=== PATIENT | female | born 1990 | race African-American/Black ===

== ENCOUNTER 2018-04-29 22:02 | Emergency (ER) | payer MEDICARE, MEDICAID ==
[2018-04-30] MEDS ORDERED: PREDNISONE 20 MG TABLET PO ONE (01:25)
[2018-04-30] MEDS ORDERED: IBUPROFEN 600 MG TABLET PO ONE (01:26)
--- NOTE | 2018-04-30 01:28 | ER Document Report ---
HPI - HPI Patient complains to provider of: sore throat Time Seen by Provider: 04/29/18 23:21 Pain Level: 3 Context: Very pleasant 28-year-old female presents with concern for strep throat/tonsillitis. She states is been going on for 3 days and has associated dysphagia. Patient denies fevers, chills, complains of a little bit of nausea that is subsided, denies vomiting or diarrhea. Patient says she has a little cough but is not persistent. She denies headache or earache. She denies any other symptoms. - EENT EENT: REPORTS: Sore Throat. DENIES: Ear Pain, Eye problems - REPRODUCTIVE Reproductive: DENIES: : Past Medical History - Social History Smoking Status: Unknown if Ever Smoked Family History: Reviewed & Not Pertinent Patient has suicidal ideation: No Patient has homicidal ideation: No - Past Medical History Cardiac Medical History: Denies: Hx Coronary Artery Disease, Hx Heart Attack, Hx Hypertension Pulmonary Medical History: Denies: Hx Asthma, Hx Bronchitis, Hx COPD, Hx Pneumonia Neurological Medical History: Denies: Hx Cerebrovascular Accident, Hx Seizures Renal/ Medical History: Denies: Hx Peritoneal Dialysis Musculoskeletal Medical History: Denies Hx Arthritis Psychiatric Medical History: Reports: Hx Bipolar Disorder, Hx Depression, Hx Schizophrenia Past Surgical History: Denies: Hx Pacemaker - Immunizations Hx Diphtheria, Pertussis, Tetanus Vaccination: Yes Vertical Provider Document - CONSTITUTIONAL Notes: PHYSICAL EXAMINATION: Reviewed vital signs and charting by RN GENERAL: Alert, interacts well. No acute distress. HEAD: Normocephalic, atraumatic. EYES: Pupils equal, round, and reactive to light. Extraocular movements intact. ENT: Oral mucosa moist, tongue midline. 3+ tonsillar hypertrophy with no tonsillar exudate, no erythema NECK: Full range of motion. Supple. Trachea midline. Cervical lymphadenopathy, no tenderness LUNGS: Clear to auscultation bilaterally, no wheezes, rales, or rhonchi. No respiratory distress. HEART: Regular rate and rhythm. No murmur ABDOMEN: soft, non-tender. Non-distended. Bowel sounds present in all 4 quadrants. no McBurney's point tenderness, no Miranda sign. EXTREMITIES: Moves all 4 extremities spontaneously. No edema, No cyanosis. PSYCH: Normal affect, normal mood. SKIN: Warm, dry, normal turgor. No rashes or lesions noted. - INFECTION CONTROL TRAVEL OUTSIDE OF THE [place] IN LAST 30 DAYS: No Course - Re-evaluation Re-evalutation: 04/30/18 01:24 Overall well-appearing 28-year-old female with a negative rapid strep test. Will send for culture. When checking vital signs patient was tachycardic. She does state that she had been having a lot of palpitations recently like when she "is on a roller coaster. "I encouraged her to follow-up with Dr. Snyder this morning and may be consider a thyroid panel. I also offered her IV hydration as I am concerned she may be a little dehydrated due to her sore throat and reduced p.o. intake. She declined IV hydration. I encouraged her to increase her p.o. intake regardless if it is uncomfortable or not and reassured her that the dexamethasone will improve her symptoms in the next 12-24 hours. Patient agreed and is being discharged. 04/30/18 01:42 - Vital Signs Vital signs: Temp Pulse Resp BP Pulse Ox 98.0 F 116 H 16 142/90 H 98 04/29/18 23:10 04/29/18 23:10 04/29/18 23:10 04/29/18 23:10 04/29/18 23:10 Discharge - Discharge Clinical Impression: Pharyngitis Qualifiers: Pharyngitis/tonsillitis etiology: unspecified etiology Qualified Code(s): J02.9 - Acute pharyngitis, unspecified Condition: Good Disposition: HOME, SELF-CARE Instructions: Sore Throat ([facility]) Additional Instructions: You were seen in the emergency department this evening for sore throat. Your rapid strep was negative but it will be sent for culture. If it does come back positive you will be called by the culture nurse and antibiotics will be prescribed. Your heart rate was elevated this evening so it is important that you call Dr. Snyder in the morning and set up an appointment for a physical. You have been given a short dose of steroids for 5 days that will greatly help your symptoms. If your throat becomes more sore or swollen, it starts to close off and you cannot breathe, you have a racing heartbeat, you pass out, or have any other concerning symptoms please immediately return to the emergency department. Referrals: MISSAEL SNYDER, [Primary Care Provider] - Follow up as needed
[2018-04-30] MEDS ORDERED: DEXAMETHASONE SOD PHOS INJ 10 MG/1 ML VIAL IM ONE (01:36)
[2018-04-30 01:49] VITALS: BP 126/80
== END 2018-04-30 01:53 | disposition home or self-care (01) ==
LOC: ER 22:02
DX: J02.9 Acute pharyngitis, unspecified (principal); J35.1 Hypertrophy of tonsils; R13.10 Dysphagia, unspecified; R05 Cough; R00.2 Palpitations; R59.0 Localized enlarged lymph nodes; R00.0 Tachycardia, unspecified
CPT/HCPCS: 99283; 96372; 87070; 87880; A9270; J1100

== ENCOUNTER → 2018-10-10 | Outpatient (CLI) | payer MEDICARE, MEDICAID ==
--- NOTE | 2018-10-11 10:49 | RADIOLOGY REPORT (SQ) ---
EXAM DESCRIPTION: MRI HEAD COMBO COMPLETED DATE/TIME: 10/10/2018 4:17 pm REASON FOR STUDY: S09.90XD UNSPECIFIED INJURY OF HEAD, SUBSEQUENT ENCOUNTER S09.90XD UNSPECIFIED IN JURY OF HEAD, SUBSEQUENT ENCOUNTER COMPARISON: None. TECHNIQUE: Multiplanar imaging includes noncontrasted T1, T2, FLAIR, diffusion with ADC map and post gadolinium contrast T1 sequences. Additional diffusion tensor imaging was obtained. Additional hemosiderin sensitive sequences were al so obtained. Images stored on PACS. CONTRAST TYPE AND DOSE: 20 mL Dotarem. RENAL FUNCTION: Not indicated. ACR Type II contrast agent associated with few, if any, unconfounded cases of NSF LIMITATIONS: None. FINDINGS: ANATOMY: No anomalies. Normal vascular flow voids. Pituitary fossa normal. CSF SPACES: Normal in size and contour. No hemorrhage. CEREBRUM: Sulci and gyri normal in size and contour. Normal white matter signal on FLAIR imaging. No evidence of hemorrhage, mass, or extraaxial fluid collection. No abnormal enhancement post contrast. POSTERIOR FOSSA: No signal alteration. No hemorrhage. No edema, masses, or mass effect. Internal neha tory canals, cerebellopontine angles, mastoids normal. No enhancing lesions. No abnormal enhancement post contrast. DIFFUSION IMAGING: Negative for acute or subacute infarction. ORBITS: No masses. Globes normal. PARANASAL SINUSES: No fluid levels. Mucosa normal. OTHER: Susceptibility Imaging-No T2* evidence of abnormal parenchymal iron deposition. Diffusion ten sor weighted images are normal. IMPRESSION: NORMAL MRI OF THE BRAIN WITHOUT AND WITH INTRAVENOUS GADOLINIUM CONTRAST. EVIDENCE OF ACUTE STROKE: NO. TECHNICAL DOCUMENTATION: JOB ID: [id number] [employer]- All Rights Reserved Reading location - IP/workstation name: [email or web address]
== END ==
LOC: RAD 15:18
PROVIDERS: ATTEND Family Medicine
DX: S09.90XD Unspecified injury of head, subsequent encounter (principal); R00.2 Palpitations; X58.XXXD Exposure to other specified factors, subsequent encounter
CPT/HCPCS: 82565; 70553; A9576

== ENCOUNTER → 2018-10-23 | Outpatient (CLI) | payer MEDICARE, MEDICAID ==
--- NOTE | 2018-10-23 21:35 | XCELERA REPORT ---
[address] [address] Transthoracic Echocardiogram Report Name: TRACY COX Age: 28 yrs Gender: Female : 1990 Patient Status: Outpatient Patient Location: [facility] Study Date: 10/23/2018 01:14 PM Height: 67 in Weight: 285 lb BSA: 2.4 m2 Procedure: A two-dimensional transthoracic echocardiogram with color flow and Doppler was performed. Study Quality: Poor. Reason For Study: PALPITATIONS History: PALPITATIONS. Ordering Physician: MISSAEL DOMINGUEZ Performed By: Nadine Mendoza Interpretation Summary The left ventricle is normal in size. There is normal left ventricular wall thickness. LV EF is 65% The left ventricular ejection fraction is within normal limits. Doppler measurements suggest normal left ventricular diastolic function The left ventricular wall motion is normal. Cannot assess for ASD,VSD ,or PFO. The right ventricle is grossly normal size. The right ventricle is not well visualized secondary to technical limitations The right atrium is normal. The left atrial size is normal. There is no evidence of mitral valve prolapse. There is no vegetation seen on the mitral valve. There is no mitral valve stenosis. There is no mitral regurgitation noted. There is no aortic valvular vegetation. There is no aortic valve stenosis There is no LVOT obstruction. No aortic regurgitation is present. There is no tricuspid stenosis. There is a trace amount of tricuspid regurgitation Right ventricular systolic pressure is at the upper limits of normal RVSP is 30 mm of Hg , with RA mean of 10. There is no pulmonic valvular stenosis. There is no pulmonic valvular regurgitation. The aortic root is not well visualized but is probably normal size. The inferior vena cava was not visualized There is no pericardial effusion. MMode/2D Measurements & Calculations RVDd: 2.9 cm LVIDd: 4.3 cm FS: 35.4 % Ao root diam: 2.8 cm IVSd: 0.78 cm LVIDs: 2.7 cm EDV(Teich): LVPWd: 0.99 cm 80.8 ml Ao root area: ESV(Teich): 6.0 cm2 28.2 ml EF(Teich): 65.2 % EDV(MOD-sp4): SV(MOD-sp4): 107.9 ml 72.7 ml ESV(MOD-sp4): 35.2 ml EF(MOD-sp4): 67.3 % Doppler Measurements & Calculations MV E max sharon: MV dec slope: Ao V2 max: LV V1 max P.8 cm/sec 122.2 cm/sec 4.2 mmHg MV A max sharon: 544.0 cm/sec2 Ao max PG: LV V1 max: 67.3 cm/sec MV dec time: 0.15 sec6.0 mmHg 102.6 cm/sec MV E/A: 1.2 PA V2 max: TR max sharon: 107.9 cm/sec 222.7 cm/sec PA max P.7 mmHg TR max P.8 mmHg Left Ventricle The left ventricle is normal in size. There is normal left ventricular wall thickness. LV EF is 65%. The left ventricular ejection fraction is within normal limits. Doppler measurements suggest normal left ventricular diastolic function. The left ventricular wall motion is normal. Cannot assess for ASD,VSD ,or PFO. There is no thrombus. Right Ventricle The right ventricle is grossly normal size. The right ventricle is not well visualized secondary to technical limitations. Atria The right atrium is normal. The left atrial size is normal. Mitral Valve There is no evidence of mitral valve prolapse. There is no vegetation seen on the mitral valve. There is no mitral valve stenosis. There is no mitral regurgitation noted. Aortic Valve There is no aortic valvular vegetation. There is no aortic valve stenosis. There is no LVOT obstruction. No aortic regurgitation is present. Tricuspid Valve There is no tricuspid stenosis. There is a trace amount of tricuspid regurgitation. Right ventricular systolic pressure is at the upper limits of normal. RVSP is 30 mm of Hg , with RA mean of 10. Pulmonic Valve There is no pulmonic valvular stenosis. There is no pulmonic valvular regurgitation. Great Vessels The aortic root is not well visualized but is probably normal size. The inferior vena cava was not visualized. Effusions There is no pericardial effusion. : MISSAEL DOMINGUEZ > Pushpa Casey
== END ==
LOC: SP 12:43
PROVIDERS: ATTEND Family Medicine
DX: S09.90XD Unspecified injury of head, subsequent encounter (principal); X58.XXXD Exposure to other specified factors, subsequent encounter; R00.2 Palpitations; R01.1 Cardiac murmur, unspecified
CPT/HCPCS: 93306

== ENCOUNTER 2018-11-09 03:15 | Emergency (ER) | payer MEDICARE, MEDICAID ==
[2018-11-09 03:28] VITALS: BP 139/96
[2018-11-09] MEDS ORDERED: PENICILLIN G BENZATHINE 1.2 MILLION UNIT/2 ML DISP.SYRIN IM ONE (03:41)
[2018-11-09] MEDS ORDERED: DEXAMETHASONE SOD PHOS INJ 10 MG/1 ML VIAL IM ONE (03:41)
--- NOTE | 2018-11-09 03:47 | ER Document Report ---
ED General - General Chief Complaint: Sore Throat Stated Complaint: TROUBLE SWALLOWING Time Seen by Provider: 11/09/18 03:34 Primary Care Provider: MISSAEL DOMINGUEZ DO [Primary Care Provider] - Follow up as needed Notes: Patient is a pleasant 28-year-old female presents with complaint of a sore throat. Says symptoms started yesterday. No fevers. No vomiting. No difficulty breathing. No cough. No congestion. Does hurt to swallow. No other complaints at this time. No recent sick contacts. TRAVEL OUTSIDE OF THE [place] IN LAST 30 DAYS: No - Related Data Allergies/Adverse Reactions: No Known Allergies Allergy (Verified 08/03/11 08:31) Past Medical History - Social History Smoking Status: Never Smoker Frequency of alcohol use: None Drug Abuse: None Family History: Reviewed & Not Pertinent - Past Medical History Cardiac Medical History: Denies: Hx Coronary Artery Disease, Hx Heart Attack, Hx Hypertension Pulmonary Medical History: Denies: Hx Asthma, Hx Bronchitis, Hx COPD, Hx Pneumonia Neurological Medical History: Denies: Hx Cerebrovascular Accident, Hx Seizures Renal/ Medical History: Denies: Hx Peritoneal Dialysis Musculoskeletal Medical History: Denies Hx Arthritis Psychiatric Medical History: Reports: Hx Bipolar Disorder, Hx Depression, Hx Schizophrenia Past Surgical History: Denies: Hx Pacemaker - Immunizations Hx Diphtheria, Pertussis, Tetanus Vaccination: Yes Review of Systems - Review of Systems Notes: My Normal Review Basic REVIEW OF SYSTEMS: CONSTITUTIONAL : Denies fever, chills, or sweats. Denies recent illness. EENT: Sore throat RESPIRATORY: Denies cough, cold, or chest congestion. Denies shortness of breath, difficulty breathing, or wheezing. GASTROINTESTINAL: Denies abdominal pain. Denies nausea, vomiting, or diarrhea. Denies constipation. Last BM: MUSCULOSKELETAL: Denies neck or back pain or joint pain or swelling. SKIN: Denies rash or skin lesions. NEUROLOGICAL: Denies altered mental status or loss of consciousness. Denies headache. Denies weakness or paralysis or loss of use of either side. Denies problems with gait or speech. Denies sensory or motor loss. ALL OTHER SYSTEMS REVIEWED AND NEGATIVE. Physical Exam - Vital signs Vitals: Temp Pulse Resp BP Pulse Ox 97.3 F 84 16 139/96 H 97 11/09/18 03:20 11/09/18 03:20 11/09/18 03:20 11/09/18 03:20 11/09/18 03:20 - Notes Notes: General Appearance: Well nourished, alert, cooperative, no acute distress, no obvious discomfort. Vitals: reviewed, See vital signs table. Head: no swelling or tenderness to the head Eyes: PERRL, EOMI, Conjuctiva clear Mouth: No decreasd moisture Throat: Patient has bilateral tonsillar hypertrophy with exudates. No inflammation or swelling in the peritonsillar space. Uvula is midline. Patient has no difficulty breathing or swelling on exam. She is handling secretions without difficulty. No stridor. Neck: Supple, no neck tenderness, small amount of anterior cervical lymphadenopathy bilaterally. Lungs: No wheezing, No rales, No rhonci, No accessory muscle use, good air exchange bilaterally. Heart: Normal rate, Regular rythm, No murmur, no rub Skin: warm, dry, appropriate color, no rash Neuro: speech clear, oriented x 3, normal affect, responds appropriately to questions. Course - Re-evaluation Re-evalutation: 11/09/18 03:47 Patient is well-appearing on exam. I feel she safe to be discharged home. She has what appears to be strep pharyngitis. She does meet treatment per center criteria. I talked her length about the possibility of mono as well. I informed her mono testing would not yet be positive. I informed her that if she is still having pain in her throat that she should follow-up with your doctor return to ER in 4 to 5 days for reevaluation. I encouraged her return to ER immediately if she has difficulty breathing, difficulty swallowing, or she feels like she is worsening in any way. Patient agrees with plan and will be discharged home. Dictation of this chart was performed using voice recognition software; therefore, there may be some unintended grammatical errors. - Vital Signs Vital signs: Temp Pulse Resp BP Pulse Ox 97.3 F 84 16 139/96 H 97 11/09/18 03:20 11/09/18 03:20 11/09/18 03:20 11/09/18 03:20 11/09/18 03:20 Discharge - Discharge Clinical Impression: Pharyngitis Qualifiers: Pharyngitis/tonsillitis etiology: unspecified etiology Qualified Code(s): J02.9 - Acute pharyngitis, unspecified Condition: Good Disposition: HOME, SELF-CARE Additional Instructions: Sometimes people with strep throat will go on to develop something called a peritonsillar abscess. This will be swelling above your tonsil causing the uvula (hangy ball in the back of your throat) to shift to one side of your throat. If you develop these symptoms you must return to the ER immediately as this requires a different kind of treatment. Also please return to the ER immediately for difficulty breathing, difficulty swallowing, or if you have any further concerns that you are worsening. If your symptoms not improving after 4 to 5 days you should return to ER for evaluation or follow up with your doctor for reevaluation. Referrals: MISSAEL DOMINGUEZ DO [Primary Care Provider] - 11/12/18
== END 2018-11-09 03:58 | disposition home or self-care (01) ==
LOC: ER 03:15
DX: J02.9 Acute pharyngitis, unspecified (principal)
CPT/HCPCS: 99282; 96372; J0561; J1100

== ENCOUNTER 2019-05-05 21:32 | Emergency (ER) | payer MEDICARE, MEDICAID ==
--- NOTE | 2019-05-06 01:26 | ER Document Report ---
HPI - HPI Patient complains to provider of: sore throat, cough Time Seen by Provider: 05/06/19 00:41 Onset: Other Quality of pain: Achy Pain Level: 4 Context: 29-year-old female presents emergency department with complaints of cough and sore throat for the past 10 days. Denies fever vomiting diarrhea. Denies exposure to strep. Reports she has taken Robitussin without relief of symptoms. Patient does not smoke but lives in a house full of people that do smoke. Associated Symptoms: Nonproductive cough, Sore throat Exacerbated by: Denies Relieved by: Denies Similar symptoms previously: No Recently seen / treated by doctor: No - CONSTITUTIONAL Constitutional: DENIES: Fever, Chills - EENT EENT: REPORTS: Sore Throat. DENIES: Ear Pain, Eye problems - NEURO Neurology: DENIES: Headache, Weakness, Vision blurred, Dizzinesss / Vertigo - CARDIOVASCULAR Cardiovascular: DENIES: Chest pain - RESPIRATORY Respiratory: REPORTS: Coughing - GASTROINTESTINAL Gastrointestinal: DENIES: Abdominal Pain, Black / Bloody Stools - URINARY Urinary: DENIES: Dysuria, Urgency, Frequency - REPRODUCTIVE Reproductive: DENIES: : - MUSCULOSKELETAL Musculoskeletal: DENIES: Extremity pain Past Medical History - General Information source: Patient Last Menstrual Period: irregular - Social History Smoking Status: Never Smoker Cigarette use (# per day): No Frequency of alcohol use: None Drug Abuse: None Occupation: [employer] Lives with: Family Family History: Reviewed & Not Pertinent Patient has suicidal ideation: No Patient has homicidal ideation: No - Past Medical History Cardiac Medical History: Denies: Hx Coronary Artery Disease, Hx Heart Attack, Hx Hypertension Pulmonary Medical History: Denies: Hx Asthma, Hx Bronchitis, Hx COPD, Hx Pneumonia Neurological Medical History: Denies: Hx Cerebrovascular Accident, Hx Seizures Renal/ Medical History: Denies: Hx Peritoneal Dialysis Musculoskeletal Medical History: Denies Hx Arthritis Psychiatric Medical History: Reports: Hx Bipolar Disorder, Hx Depression, Hx Schizophrenia Surgical Hx: Negative Past Surgical History: Denies: Hx Pacemaker - Immunizations Hx Diphtheria, Pertussis, Tetanus Vaccination: Yes Vertical Provider Document - CONSTITUTIONAL Agree With Documented VS: Yes Exam Limitations: No Limitations General Appearance: WD/WN, No Apparent Distress - INFECTION CONTROL TRAVEL OUTSIDE OF THE [place] IN LAST 30 DAYS: No - HEENT HEENT: Atraumatic, Normal ENT Exam, Normocephalic. negative: Conjuctival Injection, Pharyngeal Erythema, Tympanic Membrane Bulging - NECK Neck: Normal Inspection, Supple. negative: Lymphadenopathy-Left, Lymphadenopathy-Right - RESPIRATORY Respiratory: Breath Sounds Normal, No Respiratory Distress - CARDIOVASCULAR Cardiovascular: Regular Rate, Regular Rhythm - GI/ABDOMEN Gastrointestinal: Abdomen Soft, Abdomen Non-Tender - MUSCULOSKELETAL/EXTREMETIES Musculoskeletal/Extremeties: MIKA FROM - NEURO Level of Consciousness: Awake, Alert, Appropriate Motor/Sensory: No Motor Deficit - DERM Integumentary: Warm, Dry Course - Re-evaluation Re-evalutation: 05/06/19 03:57 This 29-year-old female presents with cough and sore throat for the past 10 days. She is taking Robitussin without relief of symptoms. Strep test was negative. Patient reports cough is worse at night. She reports she does smoke but she lives in a house full of people that smoke. Denies fever. Respiratory rate even and unlabored. Patient was instructed on negative strep. Instructed to push fluids take [id number] Robitussin as indicated. She was also instructed to return for any concerns. She verbalized understanding to all instructions. Laboratory 05/05/19 23:35 Group A Strep Rapid NEGATIVE - Vital Signs Vital signs: Temp Pulse Resp BP Pulse Ox 99.3 F 91 18 138/79 H 97 05/05/19 22:27 05/05/19 22:27 05/05/19 22:27 05/05/19 22:27 05/05/19 22:27 Discharge - Discharge Clinical Impression: Sore throat, Cough Condition: Stable Disposition: HOME, SELF-CARE Instructions: Sore Throat ([facility]) Additional Instructions: *You have been evaluated for a sore throat,cough *Your strep test was negative. A throat culture is pending. You may be contacted in 3 to 4 days should you need antibiotics *In the meantime gargle with warm salt water and suck on throat lozenges for comfort Take [id number] cough medicine as indicated *Push fluids *Do not let anyone drink/eat after you *Good hand washing *Follow-up with a primary care provider within 1 week for recheck *Return to ED for worsening condition change, needs, difficulty breathing, unable to swallow, concerns Monitor your blood pressure. Your blood pressure was elevated today. This may be because you were anxious, in pain or because you need medication. It is important to follow up with your primary care provider for full evaluation. Forms: Elevated Blood Pressure Referrals: MISSAEL DOMINGUEZ, [Primary Care Provider] - Follow up as needed
[2019-05-06 01:46] VITALS: BP 130/80
== END 2019-05-06 01:46 | disposition home or self-care (01) ==
LOC: ER 21:32
DX: J02.9 Acute pharyngitis, unspecified (principal); R05 Cough
CPT/HCPCS: 87070; 87077; 87880; 99283

== ENCOUNTER 2020-03-28 01:04 | Emergency (ER) | payer MEDICARE, MEDICAID ==
[2020-03-28] MEDS ORDERED: KETOROLAC TROMETHAMINE INJ/PF 30 MG/1 ML SDV IV ONE (01:48)
[2020-03-28] MEDS ORDERED: DEXAMETHASONE SOD PHOS INJ 10 MG/1 ML VIAL IV ONE (01:48)
--- NOTE | 2020-03-28 01:57 | ER Document Report ---
ED Oral Problem - General Chief Complaint: Sore Throat Stated Complaint: DIFFICULTY BREATHING,TROUBLE SWALLOWING Time Seen by Provider: 03/28/20 01:33 Primary Care Provider: MISSAEL DOMINGUEZ DO [Primary Care Provider] - Follow up as needed MAGALIS CRYSTAL MD [ACTIVE STAFF] - Follow up as needed Mode of Arrival: Ambulatory Information source: Patient Notes: 30-year-old female presents to ED for complaint of sore throat times a week. She states it is very difficult to swallow due to the pain in her throat. She states she has not been febrile she just had a sore throat. She is alert oriented respirations regular nonlabored she is afebrile. She does have exudate to both tonsils. Constitutional: Negative for fever. HENT: Erythematous swollen tonsils with exudate Eyes: Negative for visual changes. Cardiovascular: Negative for chest pain. Respiratory: Negative for shortness of breath. Gastrointestinal: Negative for abdominal pain, vomiting or diarrhea. Genitourinary: Negative for dysuria. Musculoskeletal: Negative for back pain. Skin: Negative for rash. Neurological: Negative for headaches, weakness or numbness. 10 point ROS negative except as marked above and in HPI. VITAL SIGNS: Within normal limits. GENERAL: No acute distress, non-toxic appearance. HEAD: Normal with no signs of head trauma. EYES: PERRLA, EOMI, conjunctiva normal, no discharge. EARS: Hearing grossly intact. NOSE: Normal. THROAT: Erythematous swollen tonsils with exudate bilaterally NECK: Normal range of motion, no tenderness, supple, no lymphadenopathy, No adenopathy, no JVD. CHEST: Clear breath sounds bilaterally. No wheezes, rales, or rhonchi. CARDIAC: Regular rate and rhythm. S1 and S2, without murmurs, gallops, or rubs. VASCULAR: No Edema. Peripheral pulses normal and equal in all extremities. ABDOMEN: Normal and soft with no tenderness, no masses or pulsatile masses. GASTROINTESTINAL: Bowel sounds normal GENITOURINARY: Normal, No tenderness LYMPATHTIC: No lymphadenopathy noted. MUSCULOSKELETAL: Good range of motion of all major joints. Extremities without clubbing, cyanosis or edema. NEUROLOGICAL: Alert and oriented x 3. No focal sensory or strength deficits. Speech normal. Follows commands appropriately. PSYCHIATRIC: Normal Affect, judgement and mood. SKIN: Normal appearance with no rashes or lesions. TRAVEL OUTSIDE OF THE [place] IN LAST 30 DAYS: No - HPI Patient complains to provider of: Sore throat Onset: Last week Onset: Gradual Quality of pain: Sharp Severity: Moderate Pain Level: 3 Sore throat: Moderate Associated symptoms: Other - Erythematous swollen painful tonsils with exudate Worsened by: Other - Swallowing Relieved by: Nothing Similar symptoms previously: Yes Recently seen / treated by doctor/dentist: No - Related Data Allergies/Adverse Reactions: No Known Allergies Allergy (Verified 08/03/11 08:31) Past Medical History - General Information source: Patient - Social History Smoking Status: Never Smoker Chew tobacco use (# tins/day): No Frequency of alcohol use: None Drug Abuse: None Occupation: online sales Lives with: Alone Family History: Reviewed & Not Pertinent Patient has suicidal ideation: No Patient has homicidal ideation: No - Past Medical History Cardiac Medical History: Reports: None Pulmonary Medical History: Reports: None EENT Medical History: Reports: None Neurological Medical History: Reports: None Endocrine Medical History: Reports: Hx Hypothyroidism, Other - Borderline diabetes Renal/ Medical History: Reports: None Malignancy Medical History: Reports: None GI Medical History: Reports: None Musculoskeletal Medical History: Reports None Skin Medical History: Reports None Psychiatric Medical History: Reports: Hx Bipolar Disorder, Hx Depression, Hx Schizophrenia Traumatic Medical History: Reports: None Infectious Medical History: Reports: None Surgical Hx: Negative Past Surgical History: Denies: Hx Pacemaker - Immunizations Hx Diphtheria, Pertussis, Tetanus Vaccination: Yes Physical Exam - Vital signs Vitals: Temp 97.8 F 03/28/20 01:18 Course - Re-evaluation Re-evalutation: 03/28/20 03:41 Monospot and strep both negative. Patient was treated with Toradol and Decadron for her swollen erythematous tonsils and was given instructions on gargling with warm salt soda water and using Chloraseptic spray. She was also given name and number for ENT for continued sore throat. Patient was discharged home. - Vital Signs Vital signs: Temp Pulse Resp BP Pulse Ox 98.0 F 89 22 H 127/91 H 99 03/28/20 03:02 03/28/20 03:02 03/28/20 03:02 03/28/20 03:02 03/28/20 03:02 - Laboratory Results Result Diagrams: 01/23/21 01:56 Critical Laboratory Results Reviewed: No Critical Results - Radiology Results Critical Radiology Results Reviewed: No Critical Results Discharge - Discharge Clinical Impression: Acute viral tonsillitis Condition: Stable Disposition: HOME, SELF-CARE Additional Instructions: Tonsillitis Tonsillitis is infection of the tonsils. Symptoms include sore throat, d ifficulty swallowing, fever and aches, and tender lumps under the angle of the jaw. Tonsillitis can be caused by bacteria or viruses. Viral tonsillitis must get better on its own. Antibiotics don't help. The doctor may test for mononucleosis if symptoms last many days. We can only treat the symptoms. Bacterial tonsillitis is treated with antibiotics. It may take a few days before improvement occurs. It's important to take all the antibiotics. Take acetaminophen or ibuprofen for pain and fever. Sip frequent clear liquids, or use popsicles or ice chips. Anesthetic sprays or lozenges may help a little (the pain of tonsillitis is deep, and isn't helped much by numbing the surface). Make sure the air in the room is not too dry. Avoid using decongestants or antihistamines. Tonsillectomy may be necessary if you have several episodes of tonsillitis within a couple of years, or if there are complications from your tonsillitis. It's usually not needed. Call the doctor if there is no improvement in two days, or if you have difficulty breathing, increasing throat pain, high fever, rash, or frequent vomiting. Chloraseptic spray is [id number] that will also help with your sore throat. Salt and soda solution gargle 1 quart of water 1 tablespoon of salt 1 teaspoon of baking soda Mixed 3 ingredients together and boil for 1 minute Placed in a covered quart jar Use 1/2 ounce of cold solution to gargle 3 times a day STEROID MEDICATION: You have been given an injection of medicine of the cortisone/steroid class. This medication is used to control inflammation or allergy. It is often continued as a pill for a short period of time, until the acute process subsides. There are usually no side effects from short-term use of cortisone-like medications. Some persons feel an increased sense of well-being and are not sleepy at bedtime. Long-term use of cortisone medications is best avoided, unless required for a severe condition. If your condition does not remit, or relapses after the course of corticosteroid medication, you should consult your physician. Toradol Injection You have been given an injection of ketorolac tromethamine (Toradol). This is an excellent, safe drug for pain control. It also has potent antiin flammatory action. You should have significant pain relief within about one hour. Toradol is not addicting and is non-sedating. It does not interfere with driving or work. Call or return if you develop itching, hives, shortness of breath, or rash. FOLLOW-UP CARE: If you have been referred to a physician for follow-up care, call the physicians office for an appointment as you were instructed or within the next two days. If you experience worsening or a significant change in your symptoms, notify the physician immediately or return to the Emergency Department at any ti me for re-evaluation. Forms: Elevated Blood Pressure Referrals: MISSAEL DOMINGUEZ DO [Primary Care Provider] - Follow up as needed MAGALIS CRYSTAL MD [ACTIVE STAFF] - Follow up as needed
[2020-03-28 02:21] LABS: ANION GAP 8 (5-19); BLOOD UREA NITROGEN 10 mg/dL (7-20); CALCIUM 9.7 mg/dL (8.4-10.2); CARBON DIOXIDE 28 mmol/L (22-30); CHLORIDE 104 mmol/L (98-107); GLUCOSE 108 mg/dL (75-110); POTASSIUM 4.4 mmol/L (3.6-5.0)
[2020-03-28 03:07] VITALS: BP 127/91
== END 2020-03-28 03:06 | disposition home or self-care (01) ==
LOC: ER 01:04
DX: J03.90 Acute tonsillitis, unspecified (principal); R13.10 Dysphagia, unspecified
CPT/HCPCS: 99284; 96374; 96375; 36415; 87070; 87880; 84703; 87077; 86308; 80048; J1885; J1100